=== PATIENT | female | born 1935 | race Asian ===

== ENCOUNTER 2019-09-24 10:56 | Inpatient (IN) | payer MEDICAID, OTHER ==
[~2019-09-24] VITALS: Ht 149.9 cm; Wt 68.2 kg
[2019-09-24] MEDS ORDERED: PRAV40TA4 PO (11:55)
[2019-09-24] MEDS ORDERED: DILT60 PO (12:21)
[2019-09-24 15:35] LABS: BASOPHILS % (AUTO) 0.5 % (0.0-2.0); EOSINOPHILS % (AUTO) 1.4 % (1.0-6.0); HEMATOCRIT 37.9 % (36-46); HEMOGLOBIN 12.5 g/dL (12.0-16.0); LYMPHOCYTES # (AUTO) 1.6 K/uL (1.0-4.8); LYMPHOCYTES % (AUTO) 29.4 % (22.0-44.0); MEAN CORPUSCULAR HEMOGLOBIN 31.2 pg (26.0-34.0); MEAN CORPUSCULAR VOLUME 95 fL (80-100); MONOCYTES # (AUTO) 0.4 K/uL (0.1-1.0); MONOCYTES % (AUTO) 6.8 % (2.0-9.0); NEUTROPHILS # (AUTO) 3.4 K/uL (1.8-7.7); NEUTROPHILS % (AUTO) 61.9 % (40.0-70.0); PLATELET COUNT (AUTO) 216 K/uL (150-450); RED BLOOD CELL COUNT(AUTO) 4.01 MIL/uL (4.00-5.20); RED CELL DISTRIBUTION WIDTH 13.8 % (11.5-14.5)
[2019-09-24 15:43] LABS: CALCIUM, TOTAL 9.8 mg/dL (8.8-10.5); CREATININE 1.14 mg/dL (0.60-1.30)
[2019-09-24 15:47] LABS: PROTHROMBIN TIME 10.1 SEC (9.4-11.6)
[2019-09-24 15:49] LABS: BILIRUBIN,TOTAL 0.4 mg/dL (0.1-1.0)
[2019-09-24] MEDS ORDERED: ONDANSETRON HCL 4 MG/2 ML VIAL IVP PRN ×2 (16:30→20:00)
[2019-09-24] MEDS ORDERED: 0.9% SODIUM CHLORIDE 10 ML SYRINGE IVP PRN (16:30)
[2019-09-24] MEDS ORDERED: ACETAMINOPHEN 325 MG TABLET PO PRN ×2 (16:30→20:00)
[2019-09-24 18:53] VITALS: BP 182/83
[2019-09-24] MEDS ORDERED: INFLUENZA VIRUS VACCINE QVS 2019-20 (3YR+)/PF 60 MCG/0.5 ML SYRINGE IM ONE (19:15)
[2019-09-24] MEDS ORDERED: PNEUMOCOCCAL VACCINE POLYVALENT 0.5 ML VIAL [PPSV23] IM ONE (19:15)
[2019-09-24 19:38] VITALS: BP 134/68
[2019-09-24] MEDS ORDERED: BISACODYL 10 MG RECTAL RECTAL SUPPOSITORY PR PRN (20:00)
[2019-09-24] MEDS ORDERED: MORPHINE SULFATE 2 MG/ML SYRINGE IVP PRN (20:00)
[2019-09-24] MEDS ORDERED: MAGNESIUM HYDROXIDE SUSPENSION 30 ML UDCUP PO PRN (20:00)
[2019-09-24] MEDS ORDERED: ZOLPIDEM TARTRATE 5 MG TABLET PO PRN (20:00)
[2019-09-24] MEDS: DOCUSATE SODIUM 100 MG CAPSULE PO SCH (20:21)
[2019-09-25] VITALS (7 sets, daily range): BP systolic 138–168; BP diastolic 69–100
[2019-09-25] MEDS: HYDROCODONE/ACETAMINOPHEN 5-325 MG TABLET PO PRN ×3 (00:21→20:01)
[2019-09-25] MEDS: HEPARIN SODIUM,PORCINE 5,000 UNITS/ML VIAL SQ SCH ×2 (00:21→08:00)
[2019-09-25 07:13] LABS: BASOPHILS % (AUTO) 0.3 % (0.0-2.0); EOSINOPHILS % (AUTO) 2.7 % (1.0-6.0); HEMATOCRIT 38.2 % (36-46); HEMOGLOBIN 12.5 g/dL (12.0-16.0); LYMPHOCYTES # (AUTO) 1.8 K/uL (1.0-4.8); LYMPHOCYTES % (AUTO) 30.7 % (22.0-44.0); MEAN CORPUSCULAR HEMOGLOBIN 31.3 pg (26.0-34.0); MEAN CORPUSCULAR HGB CONC 32.7 G/dL (31.0-37.0); MEAN CORPUSCULAR VOLUME 96 fL (80-100); MONOCYTES # (AUTO) 0.5 K/uL (0.1-1.0); MONOCYTES % (AUTO) 8.1 % (2.0-9.0); NEUTROPHILS # (AUTO) 3.4 K/uL (1.8-7.7); NEUTROPHILS % (AUTO) 58.2 % (40.0-70.0); PLATELET COUNT (AUTO) 235 K/uL (150-450); RED BLOOD CELL COUNT(AUTO) 3.99 MIL/uL (4.00-5.20); RED CELL DISTRIBUTION WIDTH 13.7 % (11.5-14.5)
[2019-09-25 07:34] LABS: CREATININE 1.29 mg/dL (0.60-1.30)
[2019-09-25] MEDS: DILTIAZEM HCL 60 MG TABLET PO SCH (08:01)
[2019-09-25] MEDS: PRAVASTATIN SODIUM 40 MG TABLET PO SCH (08:01)
[2019-09-25] MEDS: DOCUSATE SODIUM 100 MG CAPSULE PO SCH ×2 (08:01→20:12)
[2019-09-25] MEDS: PANTOPRAZOLE SODIUM 40 MG DR TABLET PO SCH (08:01)
[2019-09-26 05:20] VITALS: BP 155/85
[2019-09-26 07:12] LABS: BASOPHILS % (AUTO) 0.4 % (0.0-2.0); EOSINOPHILS % (AUTO) 3.1 % (1.0-6.0); HEMATOCRIT 36.3 % (36-46); HEMOGLOBIN 11.8 g/dL (12.0-16.0); LYMPHOCYTES # (AUTO) 1.5 K/uL (1.0-4.8); LYMPHOCYTES % (AUTO) 28.1 % (22.0-44.0); MEAN CORPUSCULAR HEMOGLOBIN 30.7 pg (26.0-34.0); MEAN CORPUSCULAR HGB CONC 32.4 G/dL (31.0-37.0); MEAN CORPUSCULAR VOLUME 95 fL (80-100); MONOCYTES # (AUTO) 0.5 K/uL (0.1-1.0); MONOCYTES % (AUTO) 8.8 % (2.0-9.0); NEUTROPHILS # (AUTO) 3.2 K/uL (1.8-7.7); NEUTROPHILS % (AUTO) 59.6 % (40.0-70.0); PLATELET COUNT (AUTO) 216 K/uL (150-450); RED BLOOD CELL COUNT(AUTO) 3.83 MIL/uL (4.00-5.20); RED CELL DISTRIBUTION WIDTH 13.7 % (11.5-14.5)
[2019-09-26 07:19] LABS: CREATININE 1.4 mg/dL (0.60-1.30); POTASSIUM 4.3 mmol/L (3.5-5.1)
[2019-09-26] MEDS: DILTIAZEM HCL 60 MG TABLET PO SCH (07:38)
[2019-09-26] MEDS: PRAVASTATIN SODIUM 40 MG TABLET PO SCH (07:38)
[2019-09-26] MEDS: DOCUSATE SODIUM 100 MG CAPSULE PO SCH ×2 (07:39→20:14)
[2019-09-26] MEDS: PANTOPRAZOLE SODIUM 40 MG DR TABLET PO SCH (07:39)
[2019-09-26 07:51] VITALS: BP 180/76
[2019-09-26 10:54] VITALS: BP 141/74
[2019-09-26] MEDS: HydrALAZINE HCL 25 MG TABLET PO SCH ×2 (11:37→20:14)
[2019-09-26 11:41] VITALS: BP 144/73
[2019-09-26 15:43] VITALS: BP 140/71
[2019-09-26 20:09] VITALS: BP 148/73
[2019-09-27 00:41] VITALS: BP 143/77
[2019-09-27 05:10] VITALS: BP 173/70
[2019-09-27 07:58] VITALS: BP 158/87
[2019-09-27] MEDS: DOCUSATE SODIUM 100 MG CAPSULE PO SCH (08:09)
[2019-09-27] MEDS: HydrALAZINE HCL 25 MG TABLET PO SCH (08:09)
[2019-09-27] MEDS: PANTOPRAZOLE SODIUM 40 MG DR TABLET PO SCH (08:09)
[2019-09-27] MEDS: PRAVASTATIN SODIUM 40 MG TABLET PO SCH (08:09)
[2019-09-27] MEDS: DILTIAZEM HCL 60 MG TABLET PO SCH (08:09)
[2019-09-27 11:29] VITALS: BP 139/66
[2019-09-27] MEDS ORDERED: HYDR25TA84 PO (13:22)
[2019-09-27 16:03] VITALS: BP 146/68
== END 2019-09-27 18:08 | disposition home or self-care (01) | DRG 384 ==
LOC: EMS 11:00 → 6S 18:18
PROVIDERS: ADMIT Internal Medicine; ATTEND Internal Medicine
DX: S70.12XA Contusion of left thigh, initial encounter (principal); F03.90 Unspecified dementia, unspecified severity, without behavioral disturbance, psychotic disturbance, mood disturbance, and anxiety; E78.00 Pure hypercholesterolemia, unspecified; E78.5 Hyperlipidemia, unspecified; I10 Essential (primary) hypertension; X58.XXXA Exposure to other specified factors, initial encounter; Y93.89 Activity, other specified; Y92.89 Other specified places as the place of occurrence of the external cause; Y99.8 Other external cause status
CPT/HCPCS: 73552; 93005; 93971; 97116; 97162; J1644